=== PATIENT | female | born 1990 | race African-American/Black ===

== ENCOUNTER 2016-11-15 15:06 | Emergency (ER) | payer OTHER ==
--- NOTE | ~2016-11-15 | CR173 ---
[facility] A Service of [facility] & [facility] RADIOLOGY TEXT RESULTS PATIENT: ANTOINE CROFT LOCATION: CFTX : 88 UNIT #: [id number] AGE: [address]: Rio Lobato SEX: F ORDER DR: [id number] [facility]. [place], [place] [address] [id number] MR#: [id number] Acc #: [id number] NAME: ANTOINE CROFT : 1990 SEX: F STUDY DATE/TIME: 11/15/2016 16:21 UNIT: [facility] ROOM: STUDY DESCRIPTION: CR Knee 3 Views Rt Attending Physician: Rio Lobato Ordering Physician: Rio Lobato (Res) Primary Care Physician: Shelbie Peter MEDICAL IMAGING REPORT This report is preliminary unless electronic signature is present EXAM Right knee, 11/15/2016 INDICATIONS 26-year-old female with knee pain for 2 days. History of fracture 10 years ago. No known injury. TECHNIQUE Frontal, lateral and sunrise views were performed. No comparisons. FINDINGS The examination is negative, no acute fracture, joint effusion or significant degenerative change. 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 IMPRESSION 1. Negative right knee. Dictated by... Jerod Jara M.D. THIS IS AN ELECTRONICALLY VERIFIED REPORT Jerod Jara M.D. at 11/15/2016 8:41 PM FLEX/mile TD: 11/15/2016 19:21 JOB #: [id number] MEDICAL IMAGING REPORT Page 1 of 1 COPY
[~2016-11-15 15:06] MED LIST: ALBUTEROL17 GM INH; BACTRIM DS TABL1 TA1 PO; CEPHALEXIN250 M1 PO; FLEXERIL PO; KEFLEX500 MG PO; LORTAB 5/500 TA1 TA1 PO; MACROBID100 MG PO; NAPROXEN PO; NO MEDICATIONS; ORUDIS75 M1 DOB; OXYCODONE HCL5 MG PO; PHENERGAN PO; PHENERGAN25 MG PO; PREDNISONE PO; PRENATAL1 TA1 PO; ZOVIRAX800 MG PO
== END 2016-11-15 17:49 | disposition home or self-care (01) ==
LOC: CED 15:06 → CFTX 15:06
DX: S83.91XA Sprain of unspecified site of right knee, initial encounter (principal); R03.0 Elevated blood-pressure reading, without diagnosis of hypertension; F17.210 Nicotine dependence, cigarettes, uncomplicated; J45.909 Unspecified asthma, uncomplicated; W18.00XA Striking against unspecified object with subsequent fall, initial encounter; Y92.830 Public park as the place of occurrence of the external cause
CPT/HCPCS: 29505; 73562; 99283